=== PATIENT | male | born 1980 | race Caucasian/White ===

== ENCOUNTER 2023-06-04 10:10 | Emergency (ER) | payer BC, OTHER, SELFPAY ==
[2023-06-04 10:17] VITALS: BP 188/123
[2023-06-04 10:41] VITALS: BP 186/110
--- NOTE | 2023-06-04 10:59 | ED.GENMED ---
History of Present Illness
General
Chief Complaint: DVT/Possible Blood Clot
Source: patient and spouse
Exam Limitations: none
Time Seen by Provider: 06/04/23 10:36
Nursing documentation reviewed up to this point in time: agreed with
Travel History
Have you had any contact with someone who has COVID-19?: No
Do you have any symptoms of coronavirus? Fever > 100 degrees, chills, cough, shortness of breath, sore throat, loss of taste or smell, muscle aches, or headache?: No
History of Present Illness
History of Present Illness:
42-year-old male with past medical history of high blood pressure and GERD presenting to the emergency department after stepping awkwardly off of a ladder 2 days ago twisting his ankle was seen in urgent care had an x-ray which was normal and was
sent home. Has been elevating and icing without relief. Patient also claims he does have a history of high blood pressure and has not been his blood pressure medications over the past few months. Has noticed increased welling to the ankle as well
as a blister.
Past History
Past History
ED Past Medical History: GERD and HTN
ED Past Surgical History: None
Social History
Tobacco: Smoker
Alcohol: None
Personal:
Living: with family
Employment: Employed
Review of Systems
Review of Systems
Allergies reviewed?: Yes
All Other Systems: ROS reviewed and negative except as documented in HPI and ROS
Phy Exam
Physical Exam
Physical Exam:
GENERAL: Alert , in no apparent distress
EYE: pupils equal and reactive
NECK: Supple, no significant adenopathy.
ENT: o/p clr, mmm.
CARDIAC: Regular rate and rhythm .
LUNGS: Clear breath sounds bilaterally, no acute respiratory distress, no wheezes/rales/rhonchi
ABDOMEN: Soft, without focal tenderness, no r/g, no cvat
NEUROLOGICAL: Alert and oriented, no focal neuro deficits
SKIN: Warm and dry, skin intact.
MUSCULOSKELETAL: Significant swelling to the left ankle with a small blister to the left lateral malleolus region swelling to the foot tenderness throughout the ankle. Increased pain with any movement of the ankle., well perfused.
PSYCH: Normal and appropriate interaction.
Course
Orders/Labs/Results
Orders:
Orders
06/04/23 10:46
US Periph Venous LOWER Ext LT Urgent
Comment:
Reason For Exam: swelling and pain
06/04/23 10:58
Lisinopril [Zestril] 20 mg PO NOW STA
06/04/23 10:59
Ice Pack-Treatment DIRECTED
Location: left ankle, also elevate above heart please
Ankle, left 3 view CR [CR Ankle - Left Min 3 Views ] Urgent
Comment:
Reason For Exam: ankle pain after fall
CR Foot - Left Min 3 Views Urgent
Comment:
Reason For Exam: foot pain
Vital Signs
Initial and Last Documented VS:
Initial Vital Signs
Temp Pulse BP Pulse Ox
98.5 F 95 188/123 99
06/04/23 10:17 06/04/23 10:17 06/04/23 10:17 06/04/23 10:17
Last Documented Vital Signs
Temp Pulse Resp BP Pulse Ox
98.5 F 90 16 198/109 98
06/04/23 10:17 06/04/23 11:04 06/04/23 10:41 06/04/23 11:04 06/04/23 10:41
MDM/Problems Addressed
MDM/Problems Addressed:
42-year-old male presenting to the emergency department after twisting his ankle 2 days ago with increasing swelling and discomfort into the calf but mainly to the ankle and foot at this point. Was seen a few days ago at urgent care and had a
normal x-ray at the time. Worsening swelling since. Blood pressure elevated here but he has not been taking his blood pressure medication.
X-ray without signs of emergent fracture ultrasound without signs of DVT. Patient with likely ligamentous injury patient was given a boot and will be nonweightbearing until orthopedic follow-up considering ongoing significant symptoms. Otherwise
no redness or warmth not appear to be consistent with infection.
Additionally of note the patient's blood pressure was elevated throughout ER stay. He does have a history of high blood pressure he has no symptoms of hypertensive emergency. He has not been taking his blood pressure medications over the past few
months. Patient started back on his lisinopril was given a dose here and written for a prescription of this and advised for close follow-up to further treat this.
*Critical Care Note
Total Time (30-74mins, 75-104mins- exclusive of procedures): Not Applicable
ED Attending Note
-
Portions of this chart may have been created with voice recognition software.� Occasional wrong word or��sound alike� substitutions may have occurred due to the inherent limitations of voice recognition software.
Discharge Plan
Departure
Patient Disposition: Home (Routine Discharge)
Date of Disposition: 06/04/23
Time of Disposition: 13:02
Patient with high blood pressure during this ER visit?: Yes
Condition: Good
Covid-19: Not Applicable
Discharge Problem:
Left ankle sprain
Instructions: Ankle Sprain (DC), BLOOD PRESSURE
Prescriptions:
New
lisinopril 40 mg tablet
40 mg PO DAILY 14 Days Qty: 14 0RF
No Action
omeprazole magnesium [Prilosec OTC] 20 MG tablet,delayed release (DR/EC)
20 mg PO DAILY
oxycodone-acetaminophen 5 MG/325 MG tablet
1 - 2 tab PO Q4HPRN PRN (Reason: moderate - severe pain) Qty: 30 0RF
lisinopril 40 MG tablet
40 mg PO DAILY Qty: 30 1RF
Referrals:
Faye Barboza DO [Family Provider] -
Dillon Ryder DO [Active] - Follow up in 5-7 days
Stand Alone Forms: Return to Work
Activity Restrictions/Additional Instructions:
You came to the emergency department today with concerns of significant swelling discomfort to the left ankle. Here your x-rays did not show emergent findings and your ultrasound did not show a blood clot. You likely have a significant ligamentous
injury. Please rest ice compress and elevate and keep weight off of your ankle and follow-up closely with orthopedics for further assessment. Return to the emergency department any worsening, new or concerning symptoms.
Interventions
Interventions:
*Neglect/Abuse Screening Last Done: 06/04/23 11:11
ED- Cardiac Assessment Last Done: 06/04/23 10:44
ED- Pulmonary Assessment Last Done: 06/04/23 10:44
ED-Peripheral Vascular Assessment Last Done: 06/04/23 10:44
ED-Skin Assessment Last Done: 06/04/23 10:44
[2023-06-04] MEDS: ZESTRIL 20 MG PO (11:04)
[2023-06-04 13:14] VITALS: BP 168/102
== END 2023-06-04 13:24 | disposition home or self-care (01) ==
LOC: EMR 10:10
PROVIDERS: EMERGENCY PHYSICIAN Emergency Medicine; FAMILY PHYSICIAN Family Medicine
DX: S93.402A Sprain of unspecified ligament of left ankle, initial encounter (principal); W19.XXXA Unspecified fall, initial encounter; K21.9 Gastro-esophageal reflux disease without esophagitis; I10 Essential (primary) hypertension; F17.200 Nicotine dependence, unspecified, uncomplicated; Z91.148 Patient's other noncompliance with medication regimen for other reason
CPT/HCPCS: 99284; 73610; 73630; 93971

== ENCOUNTER 2023-08-01 09:41 | Emergency (ER) | payer SELFPAY ==
[2023-08-01 09:42] VITALS: BP 157/100
--- NOTE | 2023-08-01 10:01 | ED.GENMED ---
History of Present Illness
General
Chief Complaint: DVT/Possible Blood Clot
Time Seen by Provider: 08/01/23 09:48
Travel History
Have you had any contact with someone who has COVID-19?: No
Do you have any symptoms of coronavirus? Fever > 100 degrees, chills, cough, shortness of breath, sore throat, loss of taste or smell, muscle aches, or headache?: No
History of Present Illness
History of Present Illness:
43-year-old male presents to the emergency department for evaluation of left calf pain beginning this morning. He is 3 days status post left lateral ankle hematoma evacuation performed by a clam grader through [facility]. He
initially suffered ankle sprain in May and had progressive worsening of swelling and pain prompting evaluation for hematoma and subsequent evacuation surgery. His postoperative pain had been well-controlled, states this pain does not feel similar
also. Notes he does have a family history of factor V Leiden but no personal history. Denies any swelling
Past History
Past History
ED Past Medical History: GERD and HTN
ED Past Surgical History: None
Social History
Tobacco: Smoker
Alcohol: None
Personal:
Living: with family
Employment: Employed
Review of Systems
Review of Systems
Allergies reviewed?: Yes
All Other Systems: ROS reviewed and negative except as documented in HPI and ROS
Phy Exam
Physical Exam
Physical Exam:
GEN: Well appearing, NAD, WDWN
HEENT: Oral mucosa moist, no scleral icterus
Cardiac: Regular rate
Lung: No respiratory distress, no tachypnea
MSK: Diffuse swelling of the left ankle, 1.5 cm well-approximated incisional wound with intact sutures, no erythema or discharge. No edema of the left calf, no palpable venous cords
Skin: Good color, no pallor or jaundice, no rashes
Neuro: AO x3, moves all extremities freely
Psych: Calm, cooperative
Course
Orders/Labs/Results
Orders:
Orders
08/01/23 09:47
US Periph Venous LOWER Ext LT Urgent
Comment:
Reason For Exam: dvt r/o
Vital Signs
Initial and Last Documented VS:
Initial Vital Signs
Temp Pulse Resp BP Pulse Ox
98.9 F 105 16 157/100 98
08/01/23 09:42 08/01/23 09:42 08/01/23 09:42 08/01/23 09:42 08/01/23 09:42
Last Documented Vital Signs
Temp Pulse Resp BP Pulse Ox
98.9 F 105 16 157/100 98
08/01/23 09:42 08/01/23 09:42 08/01/23 09:42 08/01/23 09:42 08/01/23 09:42
MDM/Problems Addressed
MDM/Problems Addressed:
No evidence for DVT, likely musculoskeletal pain related to recent surgery, discussed need for elevation and ice
*Critical Care Note
Total Time (30-74mins, 75-104mins- exclusive of procedures): Not Applicable
ED Attending Note
-
Portions of this chart may have been created with voice recognition software.� Occasional wrong word or��sound alike� substitutions may have occurred due to the inherent limitations of voice recognition software.
Discharge Plan
Departure
Patient Disposition: Home (Routine Discharge)
Date of Disposition: 08/01/23
Time of Disposition: 11:28
Patient with high blood pressure during this ER visit?: No
Discharge Problem:
Pain of left calf
Prescriptions:
No Action
omeprazole magnesium [Prilosec OTC] 20 MG tablet,delayed release (DR/EC)
20 mg PO DAILY
oxycodone-acetaminophen 5 MG/325 MG tablet
1 - 2 tab PO Q4HPRN PRN (Reason: moderate - severe pain) Qty: 30 0RF
lisinopril 40 MG tablet
40 mg PO DAILY Qty: 30 1RF
lisinopril 40 mg tablet
40 mg PO DAILY 14 Days Qty: 14 0RF
Referrals:
Faye Barboza DO [Family Provider] -
Activity Restrictions/Additional Instructions:
There is no evidence of blood clot
Keep leg elevated when possible
Follow up with your compliance review specialist
Interventions
Interventions:
*Risk Screen - Suicide Last Done: 08/01/23 09:57
*General Assessment Last Done: 08/01/23 09:42
*Neglect/Abuse Screening Last Done: 08/01/23 09:57
*ED COVID-19 Vaccine History Last Done: 08/01/23 09:42
*Nursing Disposition Last Done: 08/01/23 11:33
ED- Cardiac Assessment Last Done: 08/01/23 09:57
ED- Pulmonary Assessment Last Done: 08/01/23 09:57
ED-Peripheral Vascular Assessment Last Done: 08/01/23 09:57
ED-Skin Assessment Last Done: 08/01/23 09:57
Discharge Date and Time
Discharge Date/Time: 08/01/23 12:12
Print Language: MACEDONIAN
== END 2023-08-01 12:12 | disposition home or self-care (01) ==
LOC: EMR 09:41
PROVIDERS: EMERGENCY PHYSICIAN Emergency Medicine; FAMILY PHYSICIAN Family Medicine
DX: M79.662 Pain in left lower leg (principal); M25.472 Effusion, left ankle; I10 Essential (primary) hypertension; K21.9 Gastro-esophageal reflux disease without esophagitis; F17.200 Nicotine dependence, unspecified, uncomplicated; Z98.890 Other specified postprocedural states; Z88.6 Allergy status to analgesic agent
CPT/HCPCS: 99284; 93971